=== PATIENT | male | born 1980 | race Caucasian/White ===

== ENCOUNTER 2023-06-14 00:22 | Emergency (ER) | payer OTHER, MEDICAID, SELFPAY ==
[2023-06-14 00:27] VITALS: BP 141/98; PULSE 72; RESP 16; TEMP 36.7; O2SAT 100; BMI 20.4
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
--- NOTE | 2023-06-14 02:21 | DI.CT.S_ITS ---
PROCEDURE: CT THORACIC SPINE WO CON INDICATIONS: acute on chronic back pain TECHNIQUE: Noncontrast 3 mm thick sections acquired through the region of interest in the thoracic spine. Sagittal and coronal reformats were then constructed. For radiation dose reduction, the following was used: automated exposure control. COMPARISON: None. FINDINGS: Image quality: Excellent. Bones: Several levels of mild midthoracic anterior wedge deformity are seen, which are worst at T4 and T5, measuring 20% at T4 and 30% at T5. There is associated accentuated thoracic kyphosis. No acute vertebral body compression fractures. No suspicious sclerotic or lytic bony lesions. Central spinal canal is of normal overall caliber. Bones overall appear osteopenic, particularly given the patient's age and gender. Mild underlying degenerative changes are seen. Soft tissues: No paravertebral masses or hematomas. Visualized posteromedial lungs appear clear. IMPRESSION: No yousuf acute abnormality can be seen. Several levels of midthoracic anterior wedge deformity are seen, with associated accentuated thoracic kyphosis. Osteopenia can be seen. Please correlate with underlying patient history. Note: No significant discrepancy from the preliminary report. Dictated by: Yehuda Roth M.D. on 06/14/2023 at 6:36 Approved by: Yehuda Roth M.D. on 06/14/2023 at 6:39
[2023-06-14] MEDS: KETOROLAC 30 MG/ML VIAL IM (02:32)
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
[2023-06-14 06:30] VITALS: BP 117/73; PULSE 50; RESP 16; O2SAT 98
== END 2023-06-14 06:30 | disposition home or self-care (01) ==
PROVIDERS: Emergency Provider Emergency Medicine; PCP Nurse Practitioner Obstetrics & Gynecology
DX: M54.6 Pain in thoracic spine (principal); M48.54XA Collapsed vertebra, not elsewhere classified, thoracic region, initial encounter for fracture
CPT/HCPCS: 72128; 96372; 99283; J1885